=== PATIENT | female | born 1995 | race American Indian/Alaskan Native ===

== ENCOUNTER 2020-10-21 23:36 | Emergency (ER) | payer BC, MEDICAID ==
[2020-10-22 00:16] LABS: CHLORIDE,CL 104 mEq/L (98-106); SODIUM,NA 139 mEq/L (136-145)
--- NOTE | 2020-10-22 00:20 | EDM.PDOC ---
ED HPI GENERAL MEDICAL PROBLEM - General Chief Complaint: Abdominal Pain Stated Complaint: abdominal pain Time Seen by Provider: 10/21/20 23:56 Source of Information: Reports: Patient History Limitations: Reports: No Limitations - History of Present Illness INITIAL COMMENTS - FREE TEXT/NARRATIVE: Yrn is a 24 yo female who presents to the ED via private vehicle with complaints of abdominal pain. States she has been having abdominal pain the last 2 weeks and it has been gradually getting worse the last few days. Has been seeing urology for hematuria and some kidney issues. States she was just recently seen last week and was told she had colitis. States she had something similar to this about 5 years ago in [place] and was put in the hospital for IV fluids and some medication through IV. Points to midabdominal area of discomfort. Was suppose to see primary provider in [place] yesterday but her car broke down and was unable to get there. Has an appointment scheduled for now with her primary provider. She admits to nausea and vomiting. Last emesis was a little over an hour ago. Has been trying to stay hydrated drinking mostly water and Gatorade. States she has been eating as well but appetite is decreased and seems as if she eats the pain is worse. Denies any prior abdominal surgeries. She denies any fevers. Denies any diarrhea. States last bowel movement was this morning. Has been feeling constipated however having normal flatus. States her last period was the 24 of September and has normal periods. Denies any urinary complaints other than stated above. Denies any chance of . States she is otherwise healthy. Middle Abdominal Pain Score (Numeric/FACES): 10 - Related Data Allergies Allergy/AdvReac Type Severity Reaction Status Date / Time No Known Allergies Allergy Verified 10/21/20 23:40 Home Meds: Home Meds . [No Known Home Meds] 04/08/18 [History] Past Medical History - Past Health History Medical/Surgical History: Denies Medical/Surgical History HEENT History: Reports: None Cardiovascular History: Reports: Heart Failure (resolved) Respiratory History: Reports: None Gastrointestinal History: Reports: Gastritis, Inflammatory Bowel Disease Genitourinary History: Reports: Other (See Below) (see HPI) : 1 Para: 1 LMP (Approximate): 1 Month Musculoskeletal History: Reports: None Neurological History: Reports: None - Infectious Disease History Infectious Disease History: Reports: Chicken Pox - Past Surgical History Head Surgeries/Procedures: Reports: None HEENT Surgical History: Reports: None Cardiovascular Surgical History: Reports: None Respiratory Surgical History: Reports: None GI Surgical History: Reports: None Female Surgical History: Reports: None Neurological Surgical History: Reports: None Musculoskeletal Surgical History: Reports: None Social & Family History - Family History Family Medical History: No Pertinent Family History - Tobacco Use Tobacco Use Status *Q: Former Tobacco User Used Tobacco, but Quit: Yes Month/Year Tobacco Last Used: July 2020 - Caffeine Use Caffeine Use: Reports: None - Alcohol Use Alcohol Use History: Yes Date of Last Drink: 10/10/20 Alcohol Use Frequency: Rarely - Recreational Drug Use Recreational Drug Use: No ED ROS GENERAL - Review of Systems Review Of Systems: See Below Constitutional: Reports: Decreased Appetite. Denies: Fever, Chills, Malaise HEENT: Reports: No Symptoms Respiratory: Reports: No Symptoms Cardiovascular: Reports: No Symptoms GI/Abdominal: Reports: Abdominal Pain, Constipation, Flatus, Nausea, Vomiting. Denies: Bloody Stool, Diarrhea, Hematemesis, Hematochezia, Melena : Reports: Flank Pain, Hematuria. Denies: Discharge, Pain, Urinary Retention Musculoskeletal: Reports: No Symptoms Skin: Reports: No Symptoms Neurological: Reports: No Symptoms Psychiatric: Reports: No Symptoms ED EXAM, GI/ABD - Physical Exam Exam: See Below Exam Limited By: No Limitations General Appearance: Alert, Mild Distress Ears: Normal External Exam, Hearing Grossly Normal Nose: Normal Inspection, Normal Mucosa, No Blood Throat/Mouth: Normal Inspection, Normal Lips, Normal Teeth, Normal Oropharynx, Normal Voice, No Airway Compromise Head: Atraumatic, Normocephalic Neck: Normal Inspection, Supple. No: Lymphadenopathy (L), Lymphadenopathy (R) Respiratory/Chest: No Respiratory Distress, Lungs Clear, Normal Breath Sounds Cardiovascular: Regular Rate, Rhythm, No Edema, No Murmur GI/Abdominal Exam: Normal Bowel Sounds, Soft, No Organomegaly, No Distention, No Mass, Tender (generalized through out, worse over epigastrium ) Back Exam: No: CVA Tenderness (L), CVA Tenderness (R) Extremities: Normal Inspection, No Pedal Edema, Normal Capillary Refill Neurological: Alert, Oriented, Normal Cognition Psychiatric: Normal Affect, Normal Mood Skin Exam: Warm, Dry, Intact, Normal Color, No Rash Course - Vital Signs Last Recorded V/S: Last Vital Signs Temp 98.9 F 10/21/20 23:37 Pulse 95 10/21/20 23:37 Resp 16 10/21/20 23:37 BP 128/78 10/21/20 23:37 Pulse Ox 98 10/21/20 23:37 - Orders/Labs/Meds Labs: Laboratory Tests 10/21/20 10/21/20 10/21/20 Range/Units 00:59 00:59 00:59 WBC 9.6 (5.0-10.0) 10^3/uL RBC 4.00 (4.00-5.50) 10^6/uL Hgb 12.6 (12.0-16.0) g/dL Hct 37.6 (37.0-47.0) % MCV 94.0 (82.0-94.0) fL MCH 31.5 (27.0-32.0) pg MCHC 33.5 (33.0-38.0) g/dL RDW Coeff of Maicol 13.4 (11.0-15.0) % Plt Count 310 (150-400) 10^3/uL Neut % (Auto) 67.7 (35-85) % Lymph % (Auto) 21.2 (10-55) % [place] % (Auto) 6.7 (0-16) % Eos % (Auto) 4.2 (0-5) % Baso % (Auto) 0.2 (0-3) % Neut # (Auto) 6.52 (1.80-7.00) 10^3/uL Lymph # (Auto) 2.04 (1.00-4.80) 10^3/uL [place] # (Auto) 0.64 (0.00-0.80) 10^3/uL Eos # (Auto) 0.40 (0.00-0.45) 10^3/uL Baso # (Auto) 0.02 10^3/uL ESR 24 Sodium 139 (136-145) mEq/L Potassium 4.1 (3.5-5.0) mEq/L Chloride 104 (98-106) mEq/L Carbon Dioxide 25 (21-32) mmol/L BUN 14 (7-18) mg/dL Creatinine 0.9 (0.6-1.0) mg/dL Est Cr Clr Drug Dosing 91.79 mL/min Estimated GFR (MDRD) > 60 (>=60) mL/min Glucose 102 H (75-99) mg/dL Lactic Acid 1.3 (0.4-2.0) mmol/L Calcium 8.8 (8.4-10.1) mg/dL Total Bilirubin 0.2 (0.0-1.0) mg/dL AST 19 (15-37) U/L ALT 38 (12-78) U/L Alkaline Phosphatase 93 (46-116) U/L C-Reactive Protein 1.7 H (0.2-0.8) mg/dL Total Protein 7.0 (6.4-8.2) g/dL Albumin 3.5 (3.4-5.0) g/dL Amylase 37 (25-115) U/L Lipase 164 (73-393) U/L Urine Color (YELLOW) Urine Appearance (CLEAR) Urine pH (4.5-8.0) Ur Specific [place] (1.003-1.020) Urine Protein (NEGATIVE) mg/dL Urine Glucose (UA) (NEGATIVE) mg/dL Urine Ketones (NEGATIVE) mg/dL Urine Occult Blood (NEGATIVE) Urine Nitrite (NEGATIVE) Urine Bilirubin (NEGATIVE) Urine Urobilinogen (0.2-1.0) EU/dL Ur Leukocyte Esterase (NEGATIVE) Urine RBC (0-5) /HPF Urine WBC (0-5) /HPF Ur Epithelial Cells (NOT SEEN) /HPF Urine Bacteria (NOT SEEN) /HPF Urine Mucus (NOT SEEN) /HPF Urine HCG, Qual 10/22/20 10/22/20 Range/Units 00:20 00:20 WBC (5.0-10.0) 10^3/uL RBC (4.00-5.50) 10^6/uL Hgb (12.0-16.0) g/dL Hct (37.0-47.0) % MCV (82.0-94.0) fL MCH (27.0-32.0) pg MCHC (33.0-38.0) g/dL RDW Coeff of Maicol (11.0-15.0) % Plt Count (150-400) 10^3/uL Neut % (Auto) (35-85) % Lymph % (Auto) (10-55) % [place] % (Auto) (0-16) % Eos % (Auto) (0-5) % Baso % (Auto) (0-3) % Neut # (Auto) (1.80-7.00) 10^3/uL Lymph # (Auto) (1.00-4.80) 10^3/uL [place] # (Auto) (0.00-0.80) 10^3/uL Eos # (Auto) (0.00-0.45) 10^3/uL Baso # (Auto) 10^3/uL ESR Sodium (136-145) mEq/L Potassium (3.5-5.0) mEq/L Chloride (98-106) mEq/L Carbon Dioxide (21-32) mmol/L BUN (7-18) mg/dL Creatinine (0.6-1.0) mg/dL Est Cr Clr Drug Dosing mL/min Estimated GFR (MDRD) (>=60) mL/min Glucose (75-99) mg/dL Lactic Acid (0.4-2.0) mmol/L Calcium (8.4-10.1) mg/dL Total Bilirubin (0.0-1.0) mg/dL AST (15-37) U/L ALT (12-78) U/L Alkaline Phosphatase (46-116) U/L C-Reactive Protein (0.2-0.8) mg/dL Total Protein (6.4-8.2) g/dL Albumin (3.4-5.0) g/dL Amylase (25-115) U/L Lipase (73-393) U/L Urine Color Yellow (YELLOW) Urine Appearance Slightly cloudy (CLEAR) Urine pH 6.5 (4.5-8.0) Ur Specific [place] >= 1.030 H (1.003-1.020) Urine Protein Negative (NEGATIVE) mg/dL Urine Glucose (UA) Negative (NEGATIVE) mg/dL Urine Ketones Negative (NEGATIVE) mg/dL Urine Occult Blood Moderate H (NEGATIVE) Urine Nitrite Negative (NEGATIVE) Urine Bilirubin Negative (NEGATIVE) Urine Urobilinogen 1.0 (0.2-1.0) EU/dL Ur Leukocyte Esterase Negative (NEGATIVE) Urine RBC 30-40 H (0-5) /HPF Urine WBC 10-20 H (0-5) /HPF Ur Epithelial Cells Moderate H (NOT SEEN) /HPF Urine Bacteria Few H (NOT SEEN) /HPF Urine Mucus Moderate H (NOT SEEN) /HPF Urine HCG, Qual Positive Meds: Medications Discontinued Medications Generic Name Dose Route Start Last Admin Trade Name Helen PRN Reason Stop Dose Admin Al Hydroxide/Mg Hydroxide 30 0 ml 10/22/20 00:47 10/22/20 00:50 ml/ Lidocaine HCl 15 ml PO 10/22/20 00:48 45 ml ONETIME ONE Administration Departure - Departure Time of Disposition: Disposition: Home, Self-Care 01 Clinical Impression: Gastritis, First trimester - Discharge Information Instructions: How a Baby Grows During , Gastritis, Adult, [id number], First Trimester of , [id number] Referrals: PCP,Not In Area [Primary Care Provider] - Forms: ED Department Discharge Additional Instructions: 1) test was positive today, congratulations! All other labs were unremarkable with no concerning findings 2) Carafate 1gm three times a day as needed for gastritis 3) Advise to refrain from taking any NSAID's. Ibuprofen, Aleve, Motrin, Advil, Naproxen 4) May take Tylenol for discomfort, which is safe for 5) Follow up with primary today at 11:00 still 6) If pain returns, worsens, any vaginal bleeding, fevers, etc... recommended returning to ED. 7) See attached handouts as well. Sepsis Event Note (ED) - Evaluation Sepsis Screening Result: No Definite Risk - Focused Exam Vital Signs: Vital Signs Temp Pulse Resp BP Pulse Ox 10/21/20 23:37 98.9 F 95 16 128/78 98 - Problem List & Annotations (1) Gastritis SNOMED Code(s): 1387166 Code(s): K29.70 - GASTRITIS, UNSPECIFIED, WITHOUT BLEEDING Status: Acute Current Visit: Yes (2) Positive test SNOMED Code(s): 718732404 Code(s): Z32.01 - ENCOUNTER FOR TEST, RESULT POSITIVE Status: Acute Current Visit: Yes (3) First trimester SNOMED Code(s): 49801985 Code(s): Z34.91 - ENCNTR FOR SUPRVSN OF NORMAL PREG, UNSP, FIRST TRIMESTER Status: Acute Current Visit: Yes - Assessment/Plan Plan: Urine was positive today. Otherwise, all labs were overall unremarkable. Received CT scan report from last week at [place] which did show incidental finding of possible epiploic appendagitis. No significant concerning findings. GI cocktail was given which did help patient's abdominal discomfort. Will discharge with Carafate prescription. Patient has appointment today with primary provider in [place] at 11:00am. Advised discussing care. Discussed vitamin with Yrn, which she admits made her more nauseated with 1st . She is overall feeling a lot better. Admits the nausea and vomiting is likely secondary to as she had quite a bit of it with 1st as well. Discussed into detail signs and symptoms to monitor for.
[2020-10-22] MEDS ORDERED: Alum Hydrox/Mag Hydrox/Simeth 30 ML, Lidocaine 2% 15 ML PO ONE ×2 (00:47)
[2020-10-22] MEDS ORDERED: Sucralfate 1 GM Tab PO ONE (01:14)
== END 2020-10-22 01:33 | disposition home or self-care (01) ==
LOC: CC.ED 23:36
DX: O99.611 Diseases of the digestive system complicating pregnancy, first trimester (principal); K29.70 Gastritis, unspecified, without bleeding; Z87.891 Personal history of nicotine dependence
CPT/HCPCS: 36415; 80053; 81001; 81025; 82150; 83605; 83690; 85025; 85652; 86140; 99284; A9270-GY

== ENCOUNTER 2021-09-15 20:21 | Emergency (ER) | payer BC, MEDICAID ==
[2021-09-15] MEDS ORDERED: Take Home: Cephalexin 500 MG Cap, 4 Cap Pack PO ONE (21:19)
[2021-09-15] MEDS ORDERED: Ondansetron 4 MG Tab.DIS PO ONE (21:26)
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
== END 2021-09-15 21:55 | disposition home or self-care (01) ==
LOC: CC.ED 20:21
DX: O23.41 Unspecified infection of urinary tract in pregnancy, first trimester (principal); N39.0 Urinary tract infection, site not specified; O99.511 Diseases of the respiratory system complicating pregnancy, first trimester; J45.909 Unspecified asthma, uncomplicated; O99.011 Anemia complicating pregnancy, first trimester; D64.9 Anemia, unspecified
CPT/HCPCS: 81001; 81025; 87086; 99283; A9270-GY